=== PATIENT | male | born 1970 | race Caucasian/White ===

== ENCOUNTER 2021-08-12 07:38 | Emergency (ER) | payer OTHER, SELFPAY ==
--- NOTE | ~2021-08-12 | XR_ITS ---
EXAMINATION: XR CHEST CLINICAL INFORMATION: Cough. COMPARISON: None TECHNIQUE: Frontal view of the chest was obtained. FINDINGS: Normal appearance of the cardiomediastinal structures. No effusions or pneumothoraces. No focal pulmonary consolidation. Normal pattern of pulmonary vasculature. XR/XR chest 1V IMPRESSION: *No acute cardiopulmonary abnormalities. Lungs clear.
[2021-08-12 07:52] VITALS: BP 171/73; PULSE 87; RESP 16; TEMP 36.5; O2SAT 98; BMI 35.5
--- NOTE | 2021-08-12 08:01 | ED.URI ---
HPI - URI/Sore Throat General Chief Complaint: Upper Respiratory Symptoms Stated Complaint: CONGESTION FEVER Time Seen by Provider: 08/12/21 07:59 Source: patient Mode of arrival: ambulatory Limitations: no limitations History of Present Illness HPI Narrative: unvaccinated MD elicited complaint: cough, rhinorrhea and nasal congestion Pertinent past history: asthma Onset (ago): day(s) (1) Consistency: constant Severity: moderate Description of mucous: clear Able to tolerate fluids by mouth: Yes Exacerbating factors: other (coughing) Relieving factors: nothing Context: other (unvaccinated was working on renovating a house recently ) Associated symptoms: rhinorrhea, nasal congestion and cough Treatments prior to arrival: none Related Data Previous Rx's Medication Instructions Recorded albuterol sulfate 90 mcg/actuation 2 puff INHALATION QID PRN #6.7 g 08/12/21 aerosol inhaler prednisone 20 mg tablet 60 mg PO DAILY 4 Days #12 tab 08/12/21 Allergies Allergy/AdvReac Type Severity Reaction Status Date / Time No Known Allergies Allergy Verified 08/12/21 07:55 Review of Systems Review of Systems: Constitutional : No Fever, No Chills ENT/Mouth : No Hoarseness, No sore throat, pos Rhinorrhea Eyes: No Redness, No Discharge, No Vision Changes Cardiovascular : No Chest Pain, positive SOB, no Dyspnea on Exertion, No Edema Respiratory : positive Cough, No Sputum, positive Wheezing, Gastrointestinal : No Nausea, No Vomiting, No Diarrhea, No abdominal Pain Genitourinary : No Dysuria, No Hematuria Musculoskeletal : No joint pain, No Myalgias Skin : No rash Neuro : No Weakness, No Numbness, No Headache Psych : No anxiety, depression Heme/Lymph: No Bruising, No Bleeding Endocrine : No Polyuria, No Polydipsia All other systems reviewed and are negative [facility] Past Medical History Attestation statement: The following information was validated with the patient. Medical History Asthma Diabetes Hypertension Social History Social History (Updated 08/12/21 @ 08:42 by Mechelle Garrett DO) Patient Tobacco Use Status: Never used Tobacco Advance Directives: No Advance Directives Information Provided: No Physical Exam Vital Signs: Vital Signs: Last Vital Signs Temp 97.7 F 08/12/21 07:52 Pulse 87 08/12/21 07:52 Resp 18 08/12/21 08:29 BP 171/73 H 08/12/21 07:52 Pulse Ox 98 08/12/21 07:52 BMI result Body Mass Index 35.5 Appearance: Alert. Oriented X3. No acute distress. Eyes: Pupils equal, round and reactive to light. ENT: Pharynx normal. Neck: Normal inspection. Neck supple. CVS: Normal heart rate and rhythm. Pulses normal. Respiratory: No respiratory distress. Breath sounds mild exp wheezes Abdomen: Soft and nontender. Skin: Skin warm and dry. Normal skin color. Normal skin turgor. Extremities: No lower extremity edema. No calf ttp Neuro: Oriented X 3. No motor deficit. No sensory deficit. Course Course Course Narrative: will fill out mAb form for patient no hypoxia has pulse ox at home - CXR clear MDM - URI/Sore Throat MDM Narrative Medical decision making narrative: 51 yo male with asthma has INH at home, DM - diet controlled here with c/o cough, runny nose, wheezing - he is not vaccinated denies sick contacts thinks he was exposed to dust while renovating a home. At this time COVID swab, CXR, oral steroids (did discuss this will raise his BS) neb treatment. He is not hypoxic - denies CP/ORTIZ. Send home with precautions. Lab Data Labs: Lab Results 08/12/21 Range/Units 08:05 COVID-19 ([facility]) Positive A (Negative) COVID-19 Clin Com See Note Discharge Plan Discharge Clinical Impression: COVID-19 Patient Disposition: Home, Self-Care Instructions: COVID-19 (Coronavirus Disease 2019) (ED) Additional Instructions: return to ED for any worsening symptoms or concerns CXR clear at this time no pneumonia quarantine, protect others monitor O2 seek care if oxygen consistently below 92% Prescriptions: New prednisone 20 mg tablet 60 mg PO DAILY 4 Days Qty: 12 RF: 0 albuterol sulfate 90 mcg/actuation HFA aerosol inhaler 2 puff inhalation QID PRN (Reason: shortness of breath or wheezing) Qty: 6.7 RF: 0 Stand Alone Forms: Work/School Release
[2021-08-12 08:25] LABS: COVID-19 Test Positive (Negative); IDNOW Serial# 9DD0AD1C
[2021-08-12] MEDS: Albuterol Sulfate (0.083%) 2.5 MG/3 ML VIAL.NEB INHALE (08:28)
[2021-08-12 08:29] VITALS: RESP 18; O2SAT 95
[2021-08-12] MEDS: predniSONE 20 MG TABLET 60 MG PO (08:44)
[2021-08-12 09:34] VITALS: PULSE 90; RESP 17; O2SAT 98
== END 2021-08-12 09:35 | disposition home or self-care (01) ==
PROVIDERS: Emergency Provider Emergency Medicine; PCP Family Medicine
DX: U07.1 COVID-19 (principal); E11.9 Type 2 diabetes mellitus without complications; I10 Essential (primary) hypertension; J45.909 Unspecified asthma, uncomplicated
CPT/HCPCS: 36415; 71045; 87635; 94640; 99284

== ENCOUNTER 2022-09-14 00:36 | Emergency (ER) | payer OTHER, SELFPAY ==
--- NOTE | ~2022-09-14 | CT_ITS ---
EXAMINATION: CT HEAD WITHOUT CONTRAST CLINICAL INFORMATION: New-onset headache. COMPARISON: None available. TECHNIQUE: Contiguous axial imaging was performed from the skull base to vertex without intravenous administration of contrast. This CT examination was performed using dose optimization techniques as appropriate, variously including the following: *Automated exposure control. *Adjustment of mA and/or kV according to patient size (this includes techniques or standardized protocols for targeted exams where dose is matched to indication/reason for exam; i.e. extremities or head). *Use of iterative reconstruction technique. DLP: 750 mGy-cm FINDINGS: There is no evidence of acute intracranial hemorrhage or edematous territorial infarction. Wasserman-white matter differentiation is preserved. There is no abnormal attenuation within the brain parenchyma. The ventricles are normal in morphology and size. No evidence for obstructive hydrocephalus. No abnormal mass effect or midline shift. Normal positioning of the cerebellar tonsils. The suprasellar cistern remains widely patent. No extra-axial fluid collections. No acute soft tissue or osseous abnormalities. Mild mucosal thickening of the paranasal sinuses. Small left-sided mastoid effusion. The right-sided mastoid air cells are clear. CT/CT head/brain wo IV con IMPRESSION: 1. No evidence of acute intracranial hemorrhage or edematous territorial infarction. 2. Nonspecific small left-sided mastoid effusion.
[2022-09-14 00:40] VITALS: BP 148/70; PULSE 68; RESP 20; TEMP 36.1; O2SAT 98; BMI 34.9
--- NOTE | 2022-09-14 00:55 | ED.HA ---
HPI - Headache General Chief Complaint: Headache Stated Complaint: headache Time Seen by Provider: 09/14/22 00:53 Source: patient Mode of arrival: ambulatory Limitations: no limitations History of Present Illness HPI Narrative: Patient with History of sleep apnea recurrent sinus infections treated with Zithromax for sinus congestion last week comes here for headache nasal congestion for last few days headache got worse today headache gets worse on head movement and bending down no nausea no vomiting no light sensitivity no fever no history of migraine in the past Related Data Previous Rx's Medication Instructions Recorded albuterol sulfate 90 mcg/actuation 2 puff inhalation QID PRN 08/12/21 aerosol inhaler shortness of breath or wheezing #6.7 grams prednisone 20 mg tablet 60 mg PO DAILY 4 days #12 tabs 08/12/21 amoxicillin 875 mg-potassium 1 tab PO BID #20 tabs 09/14/22 clavulanate 125 mg tablet milcxakdja-ebczpzyqhbgpy-xrdckfso 1 cap PO Q6H PRN headache #20 caps 09/14/22 50 mg-300 mg-40 mg capsule (Fioricet) fluticasone propionate 50 2 spray intranasal DAILY #16 grams 09/14/22 mcg/actuation nasal spray,suspension Allergies Allergy/AdvReac Type Severity Reaction Status Date / Time No Known Allergies Allergy Verified 08/12/21 07:55 Review of Systems Review of Systems: Yes all other systems are reviewed and are negative [facility] Past Medical History Medical History Asthma Diabetes Hypertension Social History Social History Patient Tobacco Use Status: Never used Tobacco Advance Directives: No Physical Exam Vital Signs: Vital Signs: Last Vital Signs Temp 98.1 F 09/14/22 01:09 Pulse 64 09/14/22 01:09 Resp 18 09/14/22 01:09 BP 139/85 09/14/22 01:09 Pulse Ox 97 09/14/22 01:09 O2 Del Method 09/14/22 01:09 BMI result Body Mass Index 34.9 Appearance: Alert. Oriented X3. No acute distress. Obese Eyes: PERRLA, No Nystagmus ENT: Pharynx normal. Oral Mucosa moist tenderness of frontal and maxillary sinuses tympanic membrane intact inflamed nasal turbinate Neck: Normal inspection. Neck supple. CVS: Normal heart rate and rhythm. Pulses normal. Respiratory: No respiratory distress. Equal air entry bilateral, no wheezing/rales/rhonchi Abdomen: Soft and nontender. Bowel sounds are present, no mass palpable, no CVA tenderness Skin: Skin warm and dry. Normal skin color. Normal skin turgor. Extremities: No lower extremity edema. No calf tenderness Neuro: Oriented X 3. No motor deficit. No sensory deficit.No cerebellar signs , cranial nerves II-XII intact Medications Administered Discontinued Medications Generic Name Dose Route Start Last Admin Trade Name Freq PRN Reason Stop Dose Admin Amoxicillin/Clavulanate Potassium 875 mg 09/14/22 01:06 09/14/22 01:47 Amoxicillin/Potassium Clav 875 Mg Tablet PO 09/14/22 01:07 875 mg ONCE ONE Administration Ondansetron HCl 4 mg 09/14/22 01:35 09/14/22 01:48 Ondansetron Odt 4 Mg Tab.Rapdis TRANSLINGU 09/14/22 01:36 4 mg ONCE ONE Administration Tramadol HCl 50 mg 09/14/22 01:06 09/14/22 01:47 Tramadol Hcl 50 Mg Tablet PO 09/14/22 01:07 50 mg ONCE ONE Administration Medical Decision Making Medical Decision Making [facility] Narrative: CT head negative for acute patient's symptoms with rhinosinusitis discharge patient on antibiotic and Flonase nasal spray Lab Data [facility] Lab Attestation statement: I reviewed the patient's lab results. Labs: Lab Results 09/14/22 09/14/22 Range/Units 01:15 01:15 COVID-19 ([facility]) Negative (Negative) COVID-19 Clin Com See Note Influenza Type A ([facility]EE[facility]) Negative (Negative) Influenza Type B ([facility]EENA) Negative (Negative) Influenza A & B Note See Note Discharge Plan Discharge Clinical Impression: Acute rhinosinusitis, Headache Patient Disposition: Home, Self-Care Instructions: Rhinosinusitis (ED), General Headache (ED) Additional Instructions: Take antibiotics and medication for headache as prescribed Flonase for nasal spray Follow with PCP if not better Prescriptions: New hmmyosgsel-lomvvwrxaibfu-sfjm [Fioricet] 50-300-40 mg capsule 1 cap PO Q6H PRN (Reason: headache) Qty: 20 0RF amoxicillin-pot clavulanate 875-125 mg tablet 1 tab PO BID Qty: 20 0RF fluticasone propionate 50 mcg/actuation spray,suspension 2 spray intranasal DAILY Qty: 16 0RF Rx Instructions: administer into each nostril No Action prednisone 20 mg tablet 60 mg PO DAILY 4 Days Qty: 12 0RF albuterol sulfate 90 mcg/actuation HFA aerosol inhaler 2 puff inhalation QID PRN (Reason: shortness of breath or wheezing) Qty: 6.7 0RF
[2022-09-14 01:09] VITALS: BP 139/85; PULSE 64; RESP 18; TEMP 36.7; O2SAT 97
[2022-09-14 01:38] LABS: COVID-19 Test Negative (Negative); IDNOW Serial# 16C4AD1C; IDNOW Serial# BCCEAD1C; Influenza A Negative (Negative); Influenza B2 Negative (Negative)
[2022-09-14] MEDS: Amoxicillin/Potassium Clav 875 MG TABLET PO (01:47)
[2022-09-14] MEDS: traMADoL HCL 50 MG TABLET PO (01:47)
[2022-09-14] MEDS: Ondansetron ODT 4 MG TAB.RAPDIS TRANSLINGU (01:48)
== END 2022-09-14 02:50 | disposition home or self-care (01) ==
PROVIDERS: Emergency Provider Internal Medicine; PCP Family Medicine
DX: J01.90 Acute sinusitis, unspecified (principal); R51.9 Headache, unspecified; Z20.822 Contact with and (suspected) exposure to COVID-19; Z20.828 Contact with and (suspected) exposure to other viral communicable diseases; Z79.899 Other long term (current) drug therapy
CPT/HCPCS: 70450; 87502; 87635; 99283; 99284